=== PATIENT | male | born 1965 | race Caucasian/White ===

== ENCOUNTER → 2024-10-10 | Outpatient (CLI) | payer MEDICAID, SELFPAY ==
[2024-10-10 10:16] LABS: Basophils # (Auto) 0.1 Thou/mm3 (0.0-0.2); Basophils % (Auto) 1 % (0-2.5); Eosinophils # (Auto) 0.8 Thou/mm3 (0.0-0.5); Eosinophils % (Auto) 12 % (0-10); Hematocrit 48.2 % (41.0-53.0); Hemoglobin 16.4 g/dL (13.5-16.0); Immature Granulocytes % (Auto) 0 % (0-0); Immature Granulocytes Auto 0.01 Thou/mm3 (0.00-0.00); Lymphocytes % (Auto) 30 % (10-50); Mean Corpuscular Hemoglobin 28.8 pg (25.0-35.0); Mean Corpuscular Volume 85 fL (80-100); Monocytes # (Auto) 0.5 Thou/mm3 (0.0-0.8); Monocytes % (Auto) 7 % (0-12); Neutrophils # (Auto) 3.3 Thou/mm3 (1.8-7.7); Neutrophils % (Auto) 49 % (37-80); Nucleated Red Blood Cell % 0 /100 WBC (0); Platelet Count 221 Thou/mm3 (140-440); Red Blood Count 5.69 Miln/mm3 (4.50-5.90); White Blood Count 6.7 Thou/mm3 (3.8-10.6)
[2024-10-19 07:20] LABS: Sex Hormone Binding Globulin* 9 nmol/L (22-77); Testosterone, Free,Dialysis 342.7 pg/mL (35.0-155.0); Testosterone, Total, Dialysis 968 ng/dL (250-1100)
== END | disposition home or self-care (01) ==
LOC: COPL 09:34
PROVIDERS: PCP Family Medicine; Referring Provider Nurse Practitioner Family; Visit Provider Nurse Practitioner Family
DX: R79.89 Other specified abnormal findings of blood chemistry (principal)
CPT/HCPCS: 36415; 84270; 84402; 84403; 85025